=== PATIENT | female | born 1995 | race Caucasian/White ===

== ENCOUNTER 2016-09-27 10:56 | Emergency (ER) | payer OTHER ==
[2016-09-27 11:05] VITALS: TEMP 98; BMI 20.1
--- NOTE | 2016-09-27 11:30 | PDOC ---
[id number] No Limitations - History of Present Illness Initial Comments: CHIEF COMPLAINT: 21 y/o afebrile female, , approximately 8 week female with LMP 07/29/16 c/o vaginal bleeding and abdominal pain today. HISTORY OF PRESENT ILLNESS: The patient woke up from abdominal cramping at 4am today. about 1 hour ago she started having vaginal bleeding with passage of clots. She denies f/c, n/v/d, CP, SOB, back pain, hematuria, dysuria. Vital signs on arrival are within normal limits. REVIEW OF SYSTEMS: GENERAL/CONSTITUTIONAL: No fever/chills. No weakness. No weight change. HEAD, EYES, EARS, NOSE AND THROAT: No change in vision. No ear pain or discharge. No sore throat. CARDIOVASCULAR: No chest pain or shortness of breath. RESPIRATORY: No cough, wheezing, or hemoptysis. GASTROINTESTINAL: +lower abdominal cramping. No nausea, vomiting, diarrhea. GENITOURINARY: No dysuria, frequency, or change in urination. +vaginal bleeding MUSCULOSKELETAL: No joint or muscle swelling or pain. No neck or back pain. SKIN: No rash or easy bruising. NEUROLOGIC: No headache, vertigo, loss of consciousness, or loss of sensation. PHYSICAL EXAM: GENERAL: The patient is awake, alert, and fully oriented, in no acute distress. She is well appearing and ambulatory. HEAD: Normal with no signs of trauma. ENT: Pupils equal, round and reactive to light, extraocular movements intact, sclera anicteric, conjunctiva clear. Neck supple. LUNGS: Clear to auscultation bilaterally. Normal excursion. No respiratory distress or use of accessory muscles. CV: RRR, S1/S2, no MRG. Cap refill < 2 sec. ABDOMEN: Soft, flat, very minimal tenderness to deep palpation of lower abdomen. VAGINAL: Deferred EXTREMITIES: Normal range of motion, no edema. NEUROLOGICAL: Normal speech, normal gait. CN II-XII grossly intact. PSYCH: Normal mood, normal affect. SKIN: Warm, dry, normal turgor, no rashes or lesions noted. <Yaritza Neri - Last Filed: 09/27/16 15:40> <Deloris Ibarra - Last Filed: 09/30/16 08:08> - General Chief Complaint: Pain Stated Complaint: ABD PAIN, 8 WKS Time Seen by Provider: 09/27/16 11:13 Past History - Psycho/Social/Smoking Cessation Hx Suicidal Ideation: No Smoking History: Never smoked <Yaritza Neri - Last Filed: 09/27/16 15:40> <Deloris Ibarra - Last Filed: 09/30/16 08:08> - Past Medical History Allergies/Adverse Reactions: Allergies Allergy/AdvReac Type Severity Reaction Status Date / Time No Known Allergies Allergy Verified 09/27/16 11:05 *Physical Exam - Vital Signs Last Vital Signs Temp Pulse Resp BP Pulse Ox 98 F 80 18 102/62 100 09/27/16 11:03 09/27/16 11:03 09/27/16 11:03 09/27/16 11:03 09/27/16 11:03 <Yaritza Neri - Last Filed: 09/27/16 15:40> - Vital Signs Last Vital Signs Temp Pulse Resp BP Pulse Ox 98 F 94 H 18 113/62 100 09/27/16 15:50 09/27/16 15:50 09/27/16 15:50 09/27/16 15:50 09/27/16 15:50 <Deloris Ibarra - Last Filed: 09/30/16 08:08> ED Treatment Course - LABORATORY CBC & Chemistry Diagram: 09/27/16 11:22 09/27/16 11:22 - RADIOLOGY Radiology Studies Ordered: Category Date Time Status TRANSVAGINAL US PREG [US] Stat Ultrasound 09/27/16 11:14 Ordered <Yaritza Neri - Last Filed: 09/27/16 15:40> - LABORATORY CBC & Chemistry Diagram: 09/27/16 11:22 09/27/16 11:22 - ADDITIONAL ORDERS Additional order review: 09/27/16 11:22 Urine Culture - Final Urine - Urine Clean Catch NO GROWTH OBTAINED 09/27/16 11:22 RBC 4.60 MCV 74.8 L MCHC 32.5 RDW 15.2 MPV 8.3 Neutrophils % 80.8 Lymphocytes % 12.6 Monocytes % 5.7 Eosinophils % 0.1 Basophils % 0.8 <Deloris Ibarra - Last Filed: 09/30/16 08:08> Medical Decision Making - Medical Decision Making A/P: 21 y/o, 8 week female with vaginal bleeding and abd pain today. Plan is as follows: 1. Labs 2. UA/culture 3. Beta 4. type and screen 5. Transvaginal ultrasound Transvaginal Ultrasound IMPRESSION: of unknown location. 1.7cm left ovarian cyst with internal debris/blood. When the dairy technician asked the patient to void her bladder, the patient informed her that she passed something into the toilet. The dairy technician called me and informed me that she saw the miscarried fetus in the toilet. Labs ok Urine with no sign of UTI Blood type O+ Gave the patient all of her results. Suggested she follow up at her clinic to make sure her beta hcg goes down to zero. Instructed her to return to the ER with any worsening or concerning symptoms. The patient verbalizes understanding of all instructions, has no further questions and is awaiting discharge. <Yaritza Neri - Last Filed: 09/27/16 15:40> *DC/Admit/Observation/Transfer <Yaritza Neri - Last Filed: 09/27/16 15:40> - Attestations Physician Attestion: I reviewed the case with the mid-level practitioner and agree with the mid- level practitioner's assessment, diagnosis and disposition. <Deloris Ibarra - Last Filed: 09/30/16 08:08> Diagnosis at time of Disposition: Miscarriage - Discharge Dispostion Disposition: HOME Condition at time of disposition: Stable - Patient Instructions Printed Discharge Instructions: DI for Miscarriage Additional Instructions: Discharge Instructions: -Follow up at your clinic to have your beta hcg checked to make sure it goes down to zero. -Return to the ER with any worsening or concerning symptoms. Print Language: B[place]GAL[place]
[2016-09-27 11:37] LABS: BASOPHIL 0.8 % (0-2.0); EOSINOPHIL 0.1 % (0-4.5); MCH 24.3 pg (25.7-33.7); MCHC 32.5 g/dl (32.0-36.0); MEAN CELL VOLUME 74.8 fl (80-96); MEAN PLT VOLUME 8.3 fl (7.5-11.1); NEUTROPHILS 80.8 % (42.8-82.8); PLATELET COUNT 289 K/MM3 (134-434); RDW 15.2 % (11.6-15.6); WHITE BLOOD COUNT 14.2 K/mm3 (4.0-10.0)
[2016-09-27 11:51] LABS: URINE APPEARANCE CLOUDY; URINE BILIRUBIN NEGATIVE (NEGATIVE); URINE BLOOD 3+ (NEGATIVE); URINE COLOR DKYELLOW; URINE GLUCOSE (UA) NEGATIVE (NEGATIVE); URINE KETONE TRACE (NEGATIVE); URINE LEUK ESTERASE NEGATIVE (NEGATIVE); URINE NITRITE NEGATIVE (NEGATIVE); URINE PROTEIN 1+ (NEGATIVE); URINE UROBILINOGEN NEGATIVE E.U./dl (0.2-1.0)
[2016-09-27 11:59] LABS: URINE MUCUS MANY; URINE RBC 1587 /hpf (0-3); URINE WBC 3 /hpf (3-5)
[2016-09-27 12:01] LABS: ALBUMIN 3.4 g/dl (3.4-5.0); ANION GAP 13 (8-16); BILIRUBIN,TOTAL 0.3 mg/dL (0.2-1.0); CALCIUM 8.5 mg/dL (8.5-10.1); CO2 23 mmol/L (21-32); CREATININE 0.5 mg/dL (0.55-1.02); GLUCOSE,RANDOM 92 mg/dL (74-106); SGOT/AST 14 U/L (15-37); SGPT/ALT 13 U/L (12-78); TOT PROT 6.9 g/dl (6.4-8.2)
[2016-09-27 12:16] LABS: ALK PHOS 47 U/L (45-117)
[2016-09-27 15:50] VITALS: BP 113/62; PULSE 94
== END 2016-09-27 15:56 | disposition home or self-care (01) ==
LOC: JER 10:56
DX: O02.1 Missed abortion (principal); N83.292 Other ovarian cyst, left side; Z3A.08 8 weeks gestation of pregnancy
CPT/HCPCS: 36415; 76817-TC; 80053; 81003; 81015; 84702; 85025; 86850; 86900; 86901; 87086; 99282-25